=== PATIENT | female | born 1940 | race Caucasian/White ===

== ENCOUNTER → 2016-12-28 | Outpatient (CLI) | payer MEDICARE, OTHER ==
[~2016-12-28] MED LIST: ASA; BENICAR
--- NOTE | 2016-12-28 15:02 | RADRPT ---
PROCEDURE: Right knee radiographs. CLINICAL INDICATION: Right knee pain. TECHNIQUE: Three views. Weight bearing. Frontal, lateral, and patellar view. COMPARISON: No prior studies are available for comparison. FINDINGS: There is no fracture or dislocation. The soft tissues are normal. There are degenerative changes of the medial joint compartment with joint space narrowing, osteophyt es, subarticular sclerosis, and mild deformity. There is no lytic or blastic lesion. There is no radiopaque foreign body. IMPRESSION: 1. 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 2. No acute abnormality. RPTAT: QQ .Miguelito Sy MD, MD Date Time Electronically viewed and signed by .Miguelito Sy MD, on 12/28/2016 15:01 .R/
--- NOTE | 2016-12-29 07:43 | HKNOTE ---
DATE OF SERVICE: 12/28/2016 MAIN COMPLAINT: Pain in the right knee. The patient is referred by a former patient of [facility], Joselyn Fontanez. HISTORY OF MAIN COMPLAINT: The patient is a 76-year-old female who was born in [facility] and came to [facility] 30 years ago. She complains of pain in her right knee. The patient's knee had a sudden onset of pain about 1 year ago without any history of injury. The p ain was present for about a week, but she was able to manage. Then all of the sudden, she could not get out of her car one day. Her knee seemed to be locked. She managed to get home and treated her knee with Advil and Tylenol. She saw her vascular doctor (Dr. Sage) who had previously treate d her for varicose veins. He ordered an MRI scan of the knee, and at this point the patient was con fined to a wheelchair. He is referred to an orthopedic surgeon, Dr. Avery, who ordered a bone scan and then referred her to Dr. Cano who ordered an MRI scan of the knee said "no problem and will be ok in 3 months." She had a repeat MRI scan in May. The patient has had an extensive course of physical therapy, and she has gradually improved. She can get around fairly well and her biggest problem at the present time is she cannot stand up fr om more than about 3 minutes at a time. She has also noticed that she has a "lump in the back of th e knee." She has never had any cortisone injections into the knee. PRESENT COMPLAINTS: The knee does not swell, lock, or feel unstable. She can walk as far as she li kes as long as she does so slowly. Her main problem is going downstairs because she feels "very ner vous and unsure of it." She does not use a walking aid. She limps much of the time. She does not have a shoe lift. She can clip her toenails and tie her shoelaces. PAST ORTHOPEDIC HISTORY: PREVIOUS ORTHOPEDIC OPERATIONS: Fracture of the left wrist which was operated on by Jerome. PRIOR CORTISONE INTAKE: None. ALCOHOL INTAKE: None. OTHER JOINT PROBLEMS: None. BLOOD TESTS FOR ARTHRITIS: None. PRIOR INJURIES TO HIPS OR KNEES: None. WORK STATUS: The patient by profession is a "medical laboratorian." Note that she comes in with he r who is an capacity planning engineer. PAST MEDICAL HISTORY: History of breast cancer. PAST SURGICAL HISTORY: Thyroid surgery in 1966. Left wrist surgery for a fracture, 2008. Mastecto my for breast cancer, 1997. Varicose vein surgery by Dr. Sage, 2010. ALLERGIES: CODEINE. MEDICATIONS: 1. Benicar 4-12.5 once a day. 2. Glucosamine. 3. Baby aspirin once a day. 4. Calcium 1200 mg a day. 5. Vitamin D3. 6. Ambien 2.5 mg as needed. FAMILY HISTORY: Noncontributory. REVIEW OF SYSTEMS: History of breast cancer, history of varicose veins, history of tuberculosis, ot herwise negative. HABITS: The patient does not smoke or drink alcoholic beverages. COMPOSITE BOND WORKER: Dr. Cece Lawson ([phone]) PHYSICAL EXAMINATION: GENERAL: The patient is a remarkably fit and youthful-looking 76-year-old female. Her gait is ever so slightly antalgic. VITAL SIGNS: Height 5 feet, weight 123 pounds. Blood pressure 140/70, temperature 98.7. HIPS: Both hips have a full range of motion without pain. RIGHT KNEE: The right knee shows normal alignment. Active and passive extension is 0 degrees. Activ e and passive flexion is 135 degrees. Pain on full flexion. The medial and lateral collateral ligame nts and cruciate ligaments are intact. Daniel test is negative. There is moderate-sized popliteal c yst, 2+ effusion. There is tenderness, scarring, or crepitus. The patella tracks normally. There is no tenderness on the articular surface of the patella or in the patellar groove. The Q angle is nor mal. IMAGING: Plain x-rays of the right knee obtained today show an osteonecrotic cavity on the weightbe aring surface of the medial femoral condyle, marked narrowing of the medial joint space. An MRI scan of the right knee obtained on 01/23/2016 was reported by Robert Noble as showing "no de finite meniscal tear," small effusion, possible tear of the anterior cruciate ligament. An MRI scan of the right knee obtained without contrast on 06/03/[address] Robert salgado showing "increasing size bone marrow edema in the medial tibial plateau," a large area of bone m arrow edema in the medial femoral condyle, medial migration of the medial meniscus outside the artic ular space, possible tear of the central attachment of the posterior horn of the medial meniscus. DISCUSSION: A 76-year-old female with sudden onset of pain in the right knee without history of inj ury. She was seen by Dr. Cano who ordered an MRI scan of the knee and thought that there was " no problem." The MRI was repeated in May. This was reported as showing "an increase in edema in the medial f emoral condyle and medial tibial plateau." Currently, she is not very much disabled. The only disabling factor is that she is not able to ramon d for more than 3 to 5 minutes at a time. The MRI of May was reviewed. This seems to me to show more extensive pathology in the medial fe moral condyle and is alluded to an MRI scan. I do believe that she has some degree of osteonecrosis reaching the surface of the medial femoral condyle. Her main problem, however, is the degenerative change in the medial compartment. The patient was advised that even absent the osteonecrosis in th e medial femoral condyle, she has sufficient arthritis that she will eventually need to have a knee replacement operation. She can expect her symptoms to get worse with time. Because of her interest in the subject, we briefly discussed knee replacement surgery and what is in volved. The patient will return if and when further treatment is required. The patient will see me again as necessary for further evaluation and treatment. Dictated By: KAM RAMÍREZ/JOB Conf#: [id number] DID#: [id number]
== END | disposition home or self-care (01) ==
LOC: HKI 13:37
DX: M25.561 Pain in right knee (principal); Z85.3 Personal history of malignant neoplasm of breast
CPT/HCPCS: 73562; G0463